=== PATIENT | female | born 1970 | race African-American/Black ===

== ENCOUNTER 2022-05-24 17:59 | Inpatient (IN) | payer MEDICAID ==
[~2022-05-24] VITALS: Ht 121.9 cm; Wt 71.7 kg
[2022-05-24] MEDS ORDERED: SODIUM CHLORIDE 0.9% 1,000 ML IV ONE (18:45)
[2022-05-24] MEDS ORDERED: ONDANSETRON HCL 4MG/2ML INJ IV ONE (18:45)
[2022-05-24] MEDS ORDERED: FAMOTIDINE 20MG/2ML VIAL IV SCH (18:45)
[2022-05-24 19:07] LABS: BASOPHILS % 0.6 % (0.0-2.0); EOSINOPHILS % 0.9 % (0.0-5.0); HEMATOCRIT. 33.4 % (36.0-48.0); HEMOGLOBIN. 10.4 g/dL (12.0-16.0); LYMPHOCYTES % 49.4 % (20.0-50.0); MEAN CORPUSCULAR HEMOGLOBIN 26.5 pg (28.0-32.0); MEAN CORPUSCULAR VOLUME 84.5 fL (81.0-99.0); MEAN PLATELET VOLUME 8.1 fl (7.4-10.4); MONOCYTES % 5.6 % (2.0-8.0); NEUTROPHILS % 43.5 % (40.0-76.0); PLATELET 312 x1000/uL (130-400); RED BLOOD CELL COUNT 3.95 mill/uL (4.2-5.4); RED CELL DISTRIBUTION WIDTH 17.5 % (11.6-14.6)
[2022-05-24 19:17] LABS: CHLORIDE 108 mEq/L (98-107)
[2022-05-24] MEDS ORDERED: FAMOTIDINE 20MG/2ML VIAL IV NR (19:45)
[2022-05-24] MEDS ORDERED: ONDANSETRON HCL 4MG/2ML INJ IV NR (19:45)
[2022-05-25 03:20] VITALS: BP 97/66
[2022-05-25 04:00] VITALS: BP 97/66
[2022-05-25] MEDS ORDERED: ONDANSETRON HCL 4MG/2ML INJ IV PRN (06:15)
[2022-05-25] MEDS ORDERED: NALOXONE HCL 0.4MG/ML VIAL IV PRN (06:15)
[2022-05-25] MEDS ORDERED: MORPHINE SULFATE 2 MG/ML CPJ (NOT FOR IM USE) IV PRN (06:15)
[2022-05-25 08:00] VITALS: BP 112/72
[2022-05-25] MEDS ORDERED: ESTR0.5T PO (08:54)
[2022-05-25] MEDS ORDERED: ARIP15TA14 MT (08:54)
[2022-05-25] MEDS ORDERED: LISI-186 MT (08:54)
[2022-05-25] MEDS ORDERED: MEDR10TA11 MT (08:54)
[2022-05-25] MEDS ORDERED: GABA800T97 MT (08:54)
[2022-05-25] MEDS ORDERED: DICL75TA5 MT (08:54)
[2022-05-25] MEDS ORDERED: ASPI-1079 PO (08:54)
[2022-05-25] MEDS ORDERED: PROP10TA10 MT (08:54)
[2022-05-25] MEDS ORDERED: OXYC1TAB12 MT (08:54)
[2022-05-25] MEDS ORDERED: TIZA4CAP6 PO (08:54)
[2022-05-25] MEDS: NICOTINE 14MG PATCH TD SCH ×2 (10:05→17:50)
[2022-05-25 10:37] LABS: BASOPHILS % 0.5 % (0.0-2.0); EOSINOPHILS % 1.3 % (0.0-5.0); HEMATOCRIT. 32.5 % (36.0-48.0); HEMOGLOBIN. 10.1 g/dL (12.0-16.0); LYMPHOCYTES % 60.4 % (20.0-50.0); MEAN CORPUSCULAR HEMOGLOBIN 27.1 pg (28.0-32.0); MEAN CORPUSCULAR VOLUME 86.7 fL (81.0-99.0); MEAN PLATELET VOLUME 8.4 fl (7.4-10.4); MONOCYTES % 5.1 % (2.0-8.0); NEUTROPHILS % 32.7 % (40.0-76.0); PLATELET 302 x1000/uL (130-400); RED BLOOD CELL COUNT 3.74 mill/uL (4.2-5.4); RED CELL DISTRIBUTION WIDTH 17.8 % (11.6-14.6)
[2022-05-25 10:48] LABS: CHLORIDE 108 mEq/L (98-107)
[2022-05-25 12:00] VITALS: BP 101/62
[2022-05-25] MEDS: KETOROLAC 30MG/ML VIAL IV PRN ×2 (13:41→20:28)
[2022-05-25 16:00] VITALS: BP 110/65
[2022-05-25 17:43] LABS: *AMPHETAMINES SCREEN URINE NEGATIVE (NEGATIVE); *BARBITURATES SCREEN URINE NEGATIVE (NEGATIVE); *BENZODIAZEPINES SCREEN URINE NEGATIVE (NEGATIVE); *COCAINE SCREEN URINE NEGATIVE (NEGATIVE); CANNABINOID URINE SCREEN PRESUMTIVE POSITIVE (NEGATIVE); METHADONE URINE SCREEN NEGATIVE (NEGATIVE); OPIATES URINE SCREEN PRESUMTIVE POSITIVE (NEGATIVE); PHENCYCLIDINE URINE SCREEN NEGATIVE (NEGATIVE)
[2022-05-25] MEDS: ASPIRIN 81MG TABLET PO SCH (18:51)
[2022-05-25 20:00] VITALS: BP 108/66
[2022-05-25] MEDS ORDERED: MIRTAZAPINE 15MG TABLET PO SCH (21:00)
[2022-05-26] VITALS: BP 100/63
[2022-05-26 04:00] VITALS: BP 100/78
[2022-05-26 08:00] VITALS: BP 117/82
[2022-05-26] MEDS ORDERED: METOPROLOL TARTRATE 5MG/5ML VIAL IV ONE (08:20)
[2022-05-26] MEDS ORDERED: NITROGLYCERIN SPRAY/4.9GM CAN TL SCH (08:30)
[2022-05-26] MEDS: NICOTINE 14MG PATCH TD SCH (08:43)
[2022-05-26] MEDS: ASPIRIN 81MG TABLET PO SCH (08:43)
[2022-05-26 12:00] VITALS: BP 120/80
[2022-05-26] MEDS ORDERED: ASPI-1079 PO (14:59)
[2022-05-26] MEDS ORDERED: AMLO2.5T45 MT (15:01)
[2022-05-26 15:10] VITALS: BP 121/78
[2022-05-26] MEDS ORDERED: LIP40 MT (15:12)
[2022-05-26 16:00] VITALS: BP 121/86
== END 2022-05-26 17:30 | disposition home or self-care (01) | DRG 198 ==
LOC: ER 17:59 → MICUSO 05-25 00:46 → EDBEDREQ 05-25 00:48 → EDBEDREQTM 05-25 00:48 → 7WST 05-25 03:25
PROVIDERS: ADMIT Internal Medicine; ATTEND Internal Medicine
DX: I25.10 Atherosclerotic heart disease of native coronary artery without angina pectoris (principal); E87.8 Other disorders of electrolyte and fluid balance, not elsewhere classified; D64.9 Anemia, unspecified; I10 Essential (primary) hypertension; Z20.822 Contact with and (suspected) exposure to COVID-19; F31.9 Bipolar disorder, unspecified; G89.29 Other chronic pain; E78.00 Pure hypercholesterolemia, unspecified; F12.90 Cannabis use, unspecified, uncomplicated; F17.210 Nicotine dependence, cigarettes, uncomplicated; Z82.49 Family history of ischemic heart disease and other diseases of the circulatory system; Z88.8 Allergy status to other drugs, medicaments and biological substances
CPT/HCPCS: 36415; 71045; 75571; 80053; 80305; 83735; 83880; 84484; 85025; 87426; 93005; 93306; 93970; 99285; J1885; J2270; J2405; J3490; J7030

== ENCOUNTER 2022-06-26 18:03 | Inpatient (IN) | payer MEDICAID ==
[~2022-06-26] VITALS: Ht 162.6 cm; Wt 74.6 kg
[~2022-06-26 18:03] MED LIST: AMLO2.5T45 MT; ARIP15TA14 MT; ASPI-1079 PO; DICL75TA5 MT; ESTR0.5T PO; GABA800T97 MT; LIP40 MT; MEDR10TA11 MT; OXYC1TAB12 MT; TIZA4CAP6 PO
[2022-06-26] MEDS ORDERED: SODIUM CHLORIDE 0.9% 1,000 ML IV ONE (20:00)
[2022-06-26] MEDS ORDERED: ACETAMINOPHEN 325MG TABLET PO ONE (20:00)
[2022-06-26 20:13] LABS: BASOPHILS % 0.6 % (0.0-2.0); EOSINOPHILS % 0.8 % (0.0-5.0); HEMATOCRIT. 36.5 % (36.0-48.0); HEMOGLOBIN. 11.7 g/dL (12.0-16.0); LYMPHOCYTES % 37.7 % (20.0-50.0); MEAN CORPUSCULAR HEMOGLOBIN 27.6 pg (28.0-32.0); MONOCYTES % 6.2 % (2.0-8.0); NEUTROPHILS % 54.7 % (40.0-76.0); PLATELET 309 x1000/uL (130-400); RED BLOOD CELL COUNT 4.24 mill/uL (4.2-5.4); RED CELL DISTRIBUTION WIDTH 16.6 % (11.6-14.6)
[2022-06-26 20:47] LABS: CHLORIDE 109 mEq/L (98-107)
[2022-06-27] MEDS ORDERED: DICL75TA5 MT (02:26)
[2022-06-27] MEDS ORDERED: IBUP-2030 MT (02:26)
[2022-06-27] MEDS ORDERED: ALBU6.7H3 INH (02:26)
[2022-06-27] MEDS ORDERED: NITR0.4T49 SL (02:26)
[2022-06-27] MEDS ORDERED: MECL-159 MT (02:26)
[2022-06-27] MEDS ORDERED: ERGO1250 (02:26)
[2022-06-27] MEDS ORDERED: OXYC-662 MT (02:26)
[2022-06-27] MEDS ORDERED: ESTR1TAB17 MT (02:26)
[2022-06-27 02:54] VITALS: BP 115/74
[2022-06-27] MEDS ORDERED: MECLIZINE 25MG TABLET PO PRN (03:45)
[2022-06-27] MEDS ORDERED: CLONIDINE 0.1MG TABLET PO PRN (03:45)
[2022-06-27 04:00] VITALS: BP 113/69
[2022-06-27] MEDS ORDERED: *PATIENT'S OWN MEDICATION STORAGE XX SCH (04:45)
[2022-06-27] MEDS: GABAPENTIN 300MG CAPSULE PO SCH ×3 (05:17→20:28)
[2022-06-27 08:00] VITALS: BP 117/71
[2022-06-27] MEDS: ENOXAPARIN 40MG/0.4ML SYR SUBCUT SCH (08:58)
[2022-06-27] MEDS: ARIPIPRAZOLE 5MG TABLET PO SCH (08:59)
[2022-06-27] MEDS: ASPIRIN 81MG TABLET PO SCH (08:59)
[2022-06-27] MEDS ORDERED: INFLUENZA VACCINE 05/PF 0.5 ML SYRINGE IM ONE (09:00)
[2022-06-27] MEDS ORDERED: AMLODIPINE 5MG TABLET PO SCH (09:00)
[2022-06-27] MEDS ORDERED: NALOXONE HCL 0.4MG/ML VIAL IV PRN (10:00)
[2022-06-27] MEDS ORDERED: NICOTINE 21MG PATCH TD NR (10:00)
[2022-06-27 10:12] LABS: BASOPHILS % 0.7 % (0.0-2.0); HEMATOCRIT. 32.1 % (36.0-48.0); HEMOGLOBIN. 10.4 g/dL (12.0-16.0); LYMPHOCYTES % 46.7 % (20.0-50.0); MEAN CORPUSCULAR VOLUME 86.2 fL (81.0-99.0); MEAN PLATELET VOLUME 7.5 fl (7.4-10.4); MONOCYTES % 6.3 % (2.0-8.0); NEUTROPHILS % 45.3 % (40.0-76.0); PLATELET 305 x1000/uL (130-400); RED BLOOD CELL COUNT 3.73 mill/uL (4.2-5.4); RED CELL DISTRIBUTION WIDTH 16.7 % (11.6-14.6)
[2022-06-27 10:20] LABS: CHLORIDE 110 mEq/L (98-107)
[2022-06-27 10:27] LABS: HDL CHOLESTEROL 44 mg/dL (40-59); LDL CHOLESTEROL 59 mg/dL (5-100)
[2022-06-27 12:00] VITALS: BP 118/72
[2022-06-27 16:00] VITALS: BP 120/73
[2022-06-27 20:00] VITALS: BP 136/82
[2022-06-27] MEDS ORDERED: LORAZEPAM 1MG TABLET PO PRN (20:15)
[2022-06-27] MEDS: ATORVASTATIN CALCIUM 40MG TABLET PO SCH (20:28)
[2022-06-27] MEDS: OXYCODONE HCL/ACETAMINOPHEN 5/325MG TABLET PO PRN (20:29)
[2022-06-28] VITALS: BP 112/74
[2022-06-28 04:00] VITALS: BP 133/82
[2022-06-28] MEDS: GABAPENTIN 300MG CAPSULE PO SCH ×3 (05:39→21:39)
[2022-06-28] MEDS: OXYCODONE HCL/ACETAMINOPHEN 5/325MG TABLET PO PRN ×2 (06:28→21:39)
[2022-06-28 08:00] VITALS: BP 128/80
[2022-06-28] MEDS: ENOXAPARIN 40MG/0.4ML SYR SUBCUT SCH (08:42)
[2022-06-28] MEDS: ASPIRIN 81MG TABLET PO SCH (09:23)
[2022-06-28] MEDS: ARIPIPRAZOLE 5MG TABLET PO SCH (09:23)
[2022-06-28 12:00] VITALS: BP 128/78
[2022-06-28] MEDS ORDERED: MIDAZOLAM HCL 2 MG/2 ML VIAL ONE ×2 (13:59→15:24)
[2022-06-28] MEDS ORDERED: LIDOCAINE HCL/PF 1% 10 MG/ML 5ML VIAL ONE ×2 (13:59→15:11)
[2022-06-28] MEDS ORDERED: FENTANYL CITRATE/PF 50MCG/ML 2ML VIAL ONE ×2 (13:59→15:23)
[2022-06-28] MEDS ORDERED: HEPARIN 1000 UNITS/ML 10ML ONE ×2 (14:01→15:10)
[2022-06-28] MEDS ORDERED: IODIXANOL 320MG/ML 100 ML BOTTLE IV ONE (14:07)
[2022-06-28] MEDS ORDERED: ADENOSINE 3 MG/ML 2ML VIAL IV ONE ×2 (15:31)
[2022-06-28] MEDS ORDERED: TICAGRELOR 90 MG TABLET PO ONE (15:42)
[2022-06-28] MEDS ORDERED: TICAGRELOR 90 MG TABLET PO NR (15:45)
[2022-06-28] MEDS ORDERED: ASPIRIN 325MG TABLET ONE (16:10)
[2022-06-28 20:06] VITALS: BP 148/71
[2022-06-28] MEDS: ATORVASTATIN CALCIUM 40MG TABLET PO SCH (21:39)
[2022-06-28] MEDS: TICAGRELOR 90 MG TABLET PO SCH (21:39)
[2022-06-28 22:06] VITALS: BP 110/78
[2022-06-29] VITALS (8 sets, daily range): BP systolic 95–137; BP diastolic 60–88
[2022-06-29] MEDS: GABAPENTIN 300MG CAPSULE PO SCH (06:38)
[2022-06-29 07:06] LABS: BASOPHILS % 0.7 % (0.0-2.0); EOSINOPHILS % 0.9 % (0.0-5.0); HEMATOCRIT. 32.2 % (36.0-48.0); HEMOGLOBIN. 10.2 g/dL (12.0-16.0); LYMPHOCYTES % 32.9 % (20.0-50.0); MEAN CORPUSCULAR HEMOGLOBIN 27.5 pg (28.0-32.0); MEAN CORPUSCULAR VOLUME 86.3 fL (81.0-99.0); MEAN PLATELET VOLUME 7.6 fl (7.4-10.4); NEUTROPHILS % 57.5 % (40.0-76.0); PLATELET 328 x1000/uL (130-400); RED BLOOD CELL COUNT 3.73 mill/uL (4.2-5.4); RED CELL DISTRIBUTION WIDTH 16.3 % (11.6-14.6)
[2022-06-29 07:48] LABS: CHLORIDE 108 mEq/L (98-107)
[2022-06-29] MEDS: TICAGRELOR 90 MG TABLET PO SCH (08:11)
[2022-06-29] MEDS: ARIPIPRAZOLE 5MG TABLET PO SCH (08:11)
[2022-06-29] MEDS: ASPIRIN 81MG TABLET PO SCH (08:11)
[2022-06-29] MEDS: ENOXAPARIN 40MG/0.4ML SYR SUBCUT SCH (08:21)
[2022-06-29] MEDS ORDERED: GABA-532 PO (10:05)
[2022-06-29] MEDS ORDERED: TICA90TA PO (10:05)
== END 2022-06-29 11:53 | disposition home or self-care (01) | DRG 175 ==
LOC: ER 18:03 → EDBEDREQTM 23:27 → EDBEDREQ 23:27 → 7WST 06-27 01:10 → MICUSO 06-27 01:20 → 7WST 06-27 01:25 → 3WST 06-28 17:34
PROVIDERS: ADMIT Internal Medicine; ATTEND Internal Medicine
PROC: 027034Z Dilation of Coronary Artery, One Artery with Drug-eluting Intraluminal Device, Percutaneous Approach (ICD-10-PCS; principal; 2022-06-28)
PROC: 4A023N7 Measurement of Cardiac Sampling and Pressure, Left Heart, Percutaneous Approach (ICD-10-PCS; 2022-06-28)
PROC: B2111ZZ Fluoroscopy of Multiple Coronary Arteries using Low Osmolar Contrast (ICD-10-PCS; 2022-06-28)
DX: I25.110 Atherosclerotic heart disease of native coronary artery with unstable angina pectoris (principal); S09.90XA Unspecified injury of head, initial encounter; E86.0 Dehydration; F31.9 Bipolar disorder, unspecified; F41.9 Anxiety disorder, unspecified; I10 Essential (primary) hypertension; E78.00 Pure hypercholesterolemia, unspecified; F17.210 Nicotine dependence, cigarettes, uncomplicated; Z88.8 Allergy status to other drugs, medicaments and biological substances; Z82.49 Family history of ischemic heart disease and other diseases of the circulatory system; Z83.3 Family history of diabetes mellitus; Z90.49 Acquired absence of other specified parts of digestive tract; Z98.51 Tubal ligation status; W07.XXXA Fall from chair, initial encounter; Y93.89 Activity, other specified; Y92.89 Other specified places as the place of occurrence of the external cause; Y99.8 Other external cause status
CPT/HCPCS: 36415; 70486; 70551; 71045; 80048; 80053; 80061; 83880; 84484; 85025; 85347; 87426; 90686; 92928; 93005; 93458; 93571; 99285; C1769; C1874; C1887; C1893; J0153; J1644; J1650; J2250; J3010; J3490; J7030; Q9967; C1761; J8499

== ENCOUNTER 2022-07-24 12:04 | Inpatient (IN) | payer MEDICAID ==
[~2022-07-24] VITALS: Ht 162.6 cm; Wt 67.1 kg
[~2022-07-24 12:04] MED LIST changes: +ALBU6.7H3 INH; -AMLO2.5T45 MT; -DICL75TA5 MT; -ESTR0.5T PO; +GABA-532 PO; -MEDR10TA11 MT; +TICA90TA PO; -TIZA4CAP6 PO
[2022-07-24] MEDS ORDERED: SODIUM CHLORIDE 0.9% 1,000 ML IV ONE (12:30)
[2022-07-24 13:39] LABS: BASOPHILS % 0.7 % (0.0-2.0); EOSINOPHILS % 0.8 % (0.0-5.0); HEMATOCRIT. 29.8 % (36.0-48.0); HEMOGLOBIN. 9.3 g/dL (12.0-16.0); LYMPHOCYTES % 29.1 % (20.0-50.0); MEAN CORPUSCULAR HEMOGLOBIN 27.4 pg (28.0-32.0); MEAN CORPUSCULAR VOLUME 87.6 fL (81.0-99.0); MEAN PLATELET VOLUME 7.3 fl (7.4-10.4); MONOCYTES % 7.2 % (2.0-8.0); NEUTROPHILS % 62.2 % (40.0-76.0); PLATELET 360 x1000/uL (130-400); RED BLOOD CELL COUNT 3.41 mill/uL (4.2-5.4); RED CELL DISTRIBUTION WIDTH 15.6 % (11.6-14.6)
[2022-07-24 13:42] LABS: CHLORIDE 107 mEq/L (98-107)
[2022-07-24] MEDS ORDERED: ONDANSETRON HCL 4MG/2ML INJ IV PRN (17:00)
[2022-07-24] MEDS ORDERED: IPRATROPIUM/ALBUTEROL 0.5-3(2.5)MG/3ML NEB HHN PRN (17:00)
[2022-07-24] MEDS ORDERED: CLONIDINE 0.1MG TABLET PO PRN (17:00)
[2022-07-24] MEDS ORDERED: DIPHENHYDRAMINE 50MG/ML VIAL IV PRN (17:00)
[2022-07-24 20:00] VITALS: BP 121/78
[2022-07-24] MEDS ORDERED: MEDR10TA11 MT (20:57)
[2022-07-24] MEDS ORDERED: MIRT-89 MT (20:57)
[2022-07-24] MEDS ORDERED: ERGO1250 (20:57)
[2022-07-24] MEDS ORDERED: ESTR1TAB17 MT (20:57)
[2022-07-24] MEDS ORDERED: NITR0.4T49 SL (20:57)
[2022-07-24] MEDS ORDERED: IBUP-2030 MT (20:57)
[2022-07-24] MEDS ORDERED: CLOP75TA33 MT (20:57)
[2022-07-24] MEDS ORDERED: NALO4SPR NS (20:57)
[2022-07-24] MEDS ORDERED: MECL-159 PO (20:57)
[2022-07-25] VITALS: BP 145/73
[2022-07-25 04:00] VITALS: BP 126/74
[2022-07-25 07:34] LABS: HEMATOCRIT. 26.1 % (36.0-48.0); HEMOGLOBIN. 8.3 g/dL (12.0-16.0); LYMPHOCYTES % 41.1 % (20.0-50.0); MEAN CORPUSCULAR HEMOGLOBIN 27.5 pg (28.0-32.0); MEAN CORPUSCULAR VOLUME 86.9 fL (81.0-99.0); MEAN PLATELET VOLUME 7.7 fl (7.4-10.4); MONOCYTES % 7.8 % (2.0-8.0); NEUTROPHILS % 49.1 % (40.0-76.0); PLATELET 340 x1000/uL (130-400); RED BLOOD CELL COUNT 3.01 mill/uL (4.2-5.4)
[2022-07-25 08:30] VITALS: BP 111/73
[2022-07-25 08:30] LABS: CHLORIDE 108 mEq/L (98-107)
[2022-07-25] MEDS: CLOPIDOGREL 75MG TABLET PO SCH (10:35)
[2022-07-25] MEDS: ASPIRIN 81MG TABLET PO SCH (10:36)
[2022-07-25 12:00] VITALS: BP 118/76
[2022-07-25 16:30] VITALS: BP 123/76
[2022-07-25] MEDS: MIDODRINE HCL 5MG TABLET PO SCH (17:00)
[2022-07-25] MEDS: ACETAMINOPHEN 325MG TABLET PO PRN (17:30)
[2022-07-25 20:00] VITALS: BP_SYST 122; BP_SYST 137; BP_DIAS 71; BP_DIAS 76
[2022-07-25] MEDS ORDERED: ATORVASTATIN CALCIUM 40MG TABLET PO SCH (21:00)
[2022-07-26] VITALS (7 sets, daily range): BP systolic 104–137; BP diastolic 64–83
[2022-07-26] MEDS: ASPIRIN 81MG TABLET PO SCH (08:15)
[2022-07-26] MEDS: CLOPIDOGREL 75MG TABLET PO SCH (08:15)
[2022-07-26] MEDS: MIDODRINE HCL 5MG TABLET PO SCH ×3 (08:15→16:42)
[2022-07-26] MEDS: ACETAMINOPHEN 325MG TABLET PO PRN (11:43)
== END 2022-07-26 17:00 | disposition home or self-care (01) | DRG 48 ==
LOC: ER 13:08 → 8WST 16:27 → ENRESERV 17:48
PROVIDERS: ADMIT Internal Medicine; ATTEND Internal Medicine
DX: G90.8 Other disorders of autonomic nervous system (principal); R71.0 Precipitous drop in hematocrit; J45.909 Unspecified asthma, uncomplicated; Z20.822 Contact with and (suspected) exposure to COVID-19; I25.10 Atherosclerotic heart disease of native coronary artery without angina pectoris; E78.00 Pure hypercholesterolemia, unspecified; I10 Essential (primary) hypertension; F32.A Depression, unspecified; Z87.891 Personal history of nicotine dependence; Z88.8 Allergy status to other drugs, medicaments and biological substances; Z79.899 Other long term (current) drug therapy; Z86.73 Personal history of transient ischemic attack (TIA), and cerebral infarction without residual deficits; Z95.5 Presence of coronary angioplasty implant and graft; R42 Dizziness and giddiness
CPT/HCPCS: 36415; 71045; 80053; 83880; 84484; 85025; 87426; 87804; 93005; 93308; 93880; 93970; 99285; C9803; J7030

== ENCOUNTER 2023-01-17 15:57 | Emergency (ER) | payer MEDICAID ==
[~2023-01-17] VITALS: Ht 162.6 cm; Wt 77.0 kg
[~2023-01-17 15:57] MED LIST changes: +CLOP75TA33 MT; +ERGO1250; +ESTR1TAB17 MT; +IBUP-2030 MT; +MECL-159 PO; +MEDR10TA11 MT; +MIRT-89 MT; +NALO4SPR NS; +NITR0.4T49 SL; -TICA90TA PO
[2023-01-17 16:45] LABS: BASOPHILS % 0.4 % (0.0-2.0); EOSINOPHILS % 0.4 % (0.0-5.0); HEMATOCRIT. 37.1 % (36.0-48.0); HEMOGLOBIN. 12.1 g/dL (12.0-16.0); LYMPHOCYTES % 23.2 % (20.0-50.0); MEAN CORPUSCULAR HEMOGLOBIN 30.1 pg (28.0-32.0); MEAN CORPUSCULAR VOLUME 92.4 fL (81.0-99.0); MONOCYTES % 4.7 % (2.0-8.0); NEUTROPHILS % 71.3 % (40.0-76.0); PLATELET 288 x1000/uL (130-400); RED BLOOD CELL COUNT 4.01 mill/uL (4.2-5.4); RED CELL DISTRIBUTION WIDTH 13.3 % (11.6-14.6)
[2023-01-17 16:56] LABS: CHLORIDE 106 mEq/L (98-107); D-DIMER 0.37 mg/L FEU (<0.50); PROTHROMBIN TIME 10.7 sec (9.6-11.0)
[2023-01-17 17:55] VITALS: BP 127/85
== END 2023-01-17 19:14 | disposition home or self-care (01) ==
LOC: ER 15:57
DX: R07.89 Other chest pain (principal); R53.1 Weakness; R42 Dizziness and giddiness; D64.9 Anemia, unspecified; I25.10 Atherosclerotic heart disease of native coronary artery without angina pectoris; E78.00 Pure hypercholesterolemia, unspecified; I10 Essential (primary) hypertension; F31.9 Bipolar disorder, unspecified; Z79.899 Other long term (current) drug therapy
CPT/HCPCS: 36415; 71045; 80053; 84484; 85025; 85379; 93005; 99285